=== PATIENT | male | born 1970 | race Caucasian/White ===

== ENCOUNTER 2019-06-08 02:52 | Observation (INO) | payer BC ==
[2019-06-08] MEDS ORDERED: ASPIRIN 81 MG TABLET, CHEWABLE PO ONE (03:48)
[2019-06-08] MEDS ORDERED: PANTOPRAZOLE SODIUM 40 MG VIAL IV ONE (03:49)
--- NOTE | 2019-06-08 03:50 | ER Document Report ---
ED Cardiac <JOHN AC - Last Filed: 06/08/19 18:00> - General TRAVEL OUTSIDE OF THE [place] IN LAST 30 DAYS: No <SENTHIL HURD - Last Filed: 06/08/19 19:15> - General Chief Complaint: Chest Pain Stated Complaint: CHEST PAIN Time Seen by Provider: 06/08/19 03:39 Notes: Patient is a 48-year-old male who presents the emergency department with a chief complaint of chest pain. He states his pain started at midnight tonight. He states that he has been vomiting. Patient states that it starts in his epigastric area and radiates to his back. States that sharp pain that is constantly there. Patient has a history of epilepsy and a murmur. He denies any hypertension or diabetes that he knows of. 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 (SENTHIL HURD) - Related Data Allergies/Adverse Reactions: No Known Drug Allergies Allergy (Verified 06/08/19 02:54) Past Medical History - Social History Smoking Status: Never Smoker Family History: Reviewed & Not Pertinent <SENTHIL HURD - Last Filed: 06/08/19 19:15> Review of Systems <SENTHIL HURD - Last Filed: 06/08/19 19:15> - Review of Systems Notes: REVIEW OF SYSTEMS: CONSTITUTIONAL : Denies recent illness. Denies recent unintentional weight loss. Denies fever, chills, or sweats. EENT: Denies eye, ear, throat, or mouth pain, discharge, or symptoms. Denies nasal or sinus congestion. CARDIOVASCULAR: See HPI RESPIRATORY: Denies shortness of breath, cough, congestion, difficulty breathing , or wheezing. GASTROINTESTINAL: See HPI GENITOURINARY: Denies difficulty urinating, burning, blood in urine, urgency or frequency. MUSCULOSKELETAL: Denies neck and back pain. Denies joint pain or swelling. SKIN: Denies rash, itchiness, or lesions HEMATOLOGIC : Denies easy bruising or bleeding. LYMPHATIC: Denies swollen, painful, enlarged glands. NEUROLOGICAL: Denies no numbness or tingling denies weakness. Denies headache. Denies altered mental status. Denies alteration in speech. PSYCHIATRIC: Denies stress, anxiety, alteration in sleep patterns, or depression. All other systems reviewed and negative. (SENTHIL HURD) Physical Exam <SENTHIL HURD - Last Filed: 06/08/19 19:15> - Vital signs Vitals: Temp Pulse Resp BP Pulse Ox 97.7 F 50 L 20 150/75 H 98 06/08/19 03:07 06/08/19 03:07 06/08/19 03:07 06/08/19 03:07 06/08/19 03:07 - Notes Notes: PHYSICAL EXAMINATION: GENERAL: Appears well, healthy, well-nourished, no acute distress. HEAD: Normocephalic, atraumatic. EYES: PERRL, conjunctiva normal, all extraocular movements intact, sclera nonicteric ENT: Moist mucous membranes. NECK: Supple, no noticeable swelling, redness, rash. Normal range of motion. LUNGS: Equal breath sounds bilaterally and clear to auscultation. No wheezes rales or rhonchi. CARDIOVASCULAR: S1-S2, bradycardic, regular rhythm. Radial pulses 2+, normal. ABDOMEN: Normoactive bowel sounds. Soft, nontender, no guarding, no rebound tenderness, and no masses palpated. EXTREMITIES: Normal strength and range of motion, no pitting or edema. No cyanosis. NEUROLOGICAL: Moves all extremities upon command. Strength 5/5 in all extremities. PSYCH: Normal mood, normal affect. SKIN: Warm, dry. No rash, lesions, ulcerations noted. Normal skin turgor. (SENTHIL HURD) Course - Laboratory Result Diagrams: 06/08/19 03:35 06/08/19 03:35 - Diagnostic Test Radiology reviewed: Image reviewed, Reports reviewed - EKG Interpretation by Me EKG shows normal: Sinus rhythm Rate: Bradycardia - 36bpm. no stemi., reviewed by dr davidson. no old avail for comparison. [place]/QRS: RBBB When compared to previous EKG there are: Previous EKG unavailable <JOHN AC - Last Filed: 06/08/19 18:00> - Laboratory Result Diagrams: 06/08/19 03:35 06/08/19 03:35 <SENTHIL HURD - Last Filed: 06/08/19 19:15> - Re-evaluation Re-evalutation: 06/08/19 10:21 Patient signed out to me by overnight [employer]IG[employer]PRENTICE Place, pending CT results at the end of her shift. chest abdomen pelvis CT showed that the gallbladder was distended and contains a large calcified stone in the fundus and a gallstone in the gallbladder neck concerning for acute cholecystitis per radiology and reviewed by myself. pt informed of his findings. he was pain and nausea controlled. Patient does have some epigastric abdominal tenderness to palpation along with tenderness to palpation of the right upper quadrant. He has also had some vomiting and diarrhea. Symptoms started after he had [employer] last night. He has had low-grade subjective fevers. No abdominal surgeries. Last p.o. intake was 9 PM. No blood thinners. He just takes Dilantin for seizures. He was note d to have bradycardia here incidentally and denies any prior history or other symptoms of this. ekg shows sinus kajal with a RBBB, 36 bpm, no stemi, no old avail for comparison. reviewed by dr davidson, He takes no other medications. Denies any prior cardiac disease. He does have a mild leukocytosis however his labs were otherwise unremarkable. I did speak with the on-call surgeon, Dr. Ingram, at approx 10:15am who advised to make the patient n.p.o. after midnight, start Zosyn and pain control and have the hospitalist admit. I did speak with the hospitalist, Dr. Gutierrez, directly after this, secondary to the patient's bradycardia who stated he would come down to the ER to evaluate the patient for admission. Patient remained stable during his ER stay. He is well- appearing and nontoxic. Serial abdominal exams remain benign and non- peritoneal. This was my only involvement in patient care. Please refer to their note for further details of the visit. Care transferred to hospitalist/s little in stable condition. 06/08/19 10:28 (JOHN AC) 06/08/19 06:30 Patient's CBC and chemistries are both unremarkable. His first troponin is negative at this time. EKG was normal. Patient states that he still has pain. He received nitroglycerin to see if it helps with his pain. 06/08/19 07:35 Patient still continues to have pain. I discussed this case with Dr. Davidson, she is recommending a CT of the chest abdomen and pelvis to rule out an aortic dissection. 06/08/19 08:16 Report was given to CARLOS Valle. She will follow-up with the CTA of the chest, abdomen, and pelvis. (SENTHIL HURD) - Vital Signs Vital signs: Temp Pulse Resp BP Pulse Ox 98.7 F 45 L 16 149/76 H 96 06/08/19 17:58 06/08/19 17:58 06/08/19 17:58 06/08/19 17:58 06/08/19 17:58 06/08/19 10:21 Temp Pulse Resp BP Pulse Ox 06/08/19 08:16 14 136/82 H 100 06/08/19 08:01 21 H 141/67 H 95 06/08/19 07:46 17 148/67 H 96 06/08/19 07:31 21 H 143/72 H 06/08/19 07:17 18 143/87 H 98 06/08/19 07:11 18 132/69 H 97 06/08/19 07:06 21 H 128/72 H 97 06/08/19 07:01 21 H 131/73 H 95 06/08/19 07:00 19 95 06/08/19 06:56 10 L 140/55 H 96 06/08/19 06:55 10 L 97 06/08/19 06:51 13 142/73 H 97 06/08/19 06:50 11 L 97 06/08/19 06:46 13 157/82 H 97 06/08/19 06:45 12 100 06/08/19 06:01 18 137/81 H 96 06/08/19 06:00 19 96 06/08/19 05:01 16 123/81 97 06/08/19 05:00 14 98 06/08/19 04:01 14 139/83 H 100 06/08/19 04:00 11 L 99 06/08/19 03:29 20 163/75 H 100 06/08/19 03:28 13 100 06/08/19 03:27 14 100 06/08/19 03:07 97.7 F 50 L 20 150/75 H 98 (JOHN AC) - Laboratory Laboratory results interpreted by ar: 06/08/19 06/08/19 03:35 03:35 WBC 11.4 H Seg Neutrophils % 85.5 H Lymphocytes % 10.1 L Absolute Neutrophils 9.8 H BUN 23 H Glucose 127 H 06/08/19 10:26 Labs- Entire Visit 06/08/19 06/08/19 06/08/19 03:35 03:35 03:35 WBC 11.4 H RBC 4.82 Hgb 14.2 Hct 42.4 MCV 88 MCH 29.5 MCHC 33.5 RDW 13.3 Plt Count 158 Seg Neutrophils % 85.5 H Lymphocytes % 10.1 L Monocytes % 3.7 Eosinophils % 0.3 Basophils % 0.4 Absolute Neutrophils 9.8 H Absolute Lymphocytes 1.2 Absolute Monocytes 0.4 Absolute Eosinophils 0.0 Absolute Basophils 0.0 Sodium 138.3 Potassium 4.0 Chloride 104 Carbon Dioxide 26 Anion Gap 8 BUN 23 H Creatinine 0.90 Est GFR ( Amer) > 60 Est GFR (Non-Af Amer) > 60 Glucose 127 H Calcium 9.1 Total Bilirubin 0.4 Direct Bilirubin 0.3 Neonat Total Bilirubin Not Reportable Neonat Direct Bilirubin Not Reportable Neonat Indirect Bili Not Reportable AST 28 ALT 32 Alkaline Phosphatase 72 Creatine Kinase 151 CK-MB (CK-2) 2.47 Troponin I < 0.012 Total Protein 7.0 Albumin 4.5 Lipase 06/08/19 06/08/19 03:35 06:50 WBC RBC Hgb Hct MCV MCH MCHC RDW Plt Count Seg Neutrophils % Lymphocytes % Monocytes % Eosinophils % Basophils % Absolute Neutrophils Absolute Lymphocytes Absolute Monocytes Absolute Eosinophils Absolute Basophils Sodium Potassium Chloride Carbon Dioxide Anion Gap BUN Creatinine Est GFR ( Amer) Est GFR (Non-Af Amer) Glucose Calcium Total Bilirubin Direct Bilirubin Neonat Total Bilirubin Neonat Direct Bilirubin Neonat Indirect Bili AST ALT Alkaline Phosphatase Creatine Kinase CK-MB (CK-2) Troponin I < 0.012 Total Protein Albumin Lipase 77.1 (JOHN AC) - Diagnostic Test Radiology results interpreted by me: 06/08/19 10:21 Chest X-Ray 06/08/19 03:47 IMPRESSION: No acute cardiopulmonary abnormality copyright 2011 [employer]- All Rights Reserved Abdomen/Pelvis CTA 06/08/19 07:22 IMPRESSION: 1. Unremarkable angiogram of the aorta. No evidence of aneurysm, dissection, or other acute pathology. 2. The gallbladder is distended and contains a large calcified stone in the fundus and a gallstone in the gallbladder neck (series 603, image 38). Findings are concerning for acute cholecystitis. Chest/Abdomen CTA 06/08/19 07:22 IMPRESSION: 1. Unremarkable angiogram of the aorta. No evidence of aneurysm, dissection, or other acute pathology. 2. The gallbladder is distended and contains a large calcified stone in the fundus and a gallstone in the gallbladder neck (series 603, image 38). Findings are concerning for acute cholecystitis. (JOHN AC) - EKG Interpretation by Me Additional EKG results interpreted by me: 06/08/19 0300 Sinus bradycardia with a right bundle branch block. Heart rate of 42. VA 176; QRS 144; QT 488; QTc 408. 06/08/2019 0615 Sinus bradycardia with a right bundle branch block. Heart rate 36. VA 160; QRS 148; QT 500; QTc 387. (SENTHIL HURD) Discharge - Discharge Admitting Provider: Surgicalist - dr ingram agreed to take the pt to the OR tomorrow and requested NPO after midnight and to start zosyn and pain control, requested hospitalist admit, pt does have bradycardia that the pt wasn't aware of, spoke with hospitalist dr rocha who stated he would come down to the ER to evaluate the pt for admission Unit Admitted: Surgical Floor <JOHN AC - Last Filed: 06/08/19 18:00> <SENTHIL HURD - Last Filed: 06/08/19 19:15> - Discharge Clinical Impression: Bradycardia, Right bundle branch block, Vomiting and diarrhea, Leukocytosis Cholelithiasis with acute cholecystitis Qualifiers: Biliary obstruction: without biliary obstruction Qualified Code(s): K80.00 - Calculus of gallbladder with acute cholecystitis without obstruction Abdominal pain Qualifiers: Abdominal location: upper abdomen, unspecified Qualified Code(s): R10.10 - Upper abdominal pain, unspecified Condition: Fair Disposition: ADMITTED INPATIENT
[2019-06-08 03:54] LABS: ABSOLUTE LYMPHOCYTES (AUTO) 1.2 10^3/uL (0.5-4.7); ABSOLUTE MONOCYTES (AUTO) 0.4 10^3/uL (0.1-1.4); ABSOLUTE NEUT (AUTO) 9.8 10^3/uL (1.7-8.2); BASOPHILS % (AUTO) 0.4 % (0-2); EOSINOPHILS % (AUTO) 0.3 % (0-6); HEMATOCRIT 42.4 % (37.9-51.0); HEMOGLOBIN 14.2 g/dL (13.5-17.0); LYMPHOCYTES % (AUTO) 10.1 % (13-45); MEAN CORPUSCULAR HEMOGLOBIN 29.5 pg (27.0-33.4); MEAN CORPUSCULAR HGB CONC 33.5 g/dL (32.0-36.0); MEAN CORPUSCULAR VOLUME 88 fl (80-97); MONOCYTES % (AUTO) 3.7 % (3-13); PLATELET COUNT 158 10^3/uL (150-450); RED BLOOD COUNT 4.82 10^6/uL (4.35-5.55); RED CELL DISTRIBUTION WIDTH 13.3 % (11.5-14.0); SEGMENTED NEUTROPHILS % (AUTO) 85.5 % (42-78); TOTAL CELLS COUNTED % (AUTO) 100 %; WHITE BLOOD COUNT 11.4 10^3/uL (4.0-10.5)
[2019-06-08] MEDS ORDERED: MORPHINE SULFATE 10 MG/ML INJ IV ONE (04:06)
[2019-06-08] MEDS ORDERED: ONDANSETRON HCL INJ/PF 4 MG/2 ML SDV IV ONE (04:06)
[2019-06-08 04:11] LABS: ALANINE AMINOTRANSFERASE 32 U/L (21-72); ALBUMIN 4.5 g/dL (3.5-5.0); ALKALINE PHOSPHATASE 72 U/L (38-126); ANION GAP 8 (5-19); ASPARTATE AMINO TRANSFERASE 28 U/L (17-59); BILIRUBIN,DIRECT 0.3 mg/dL (0.0-0.4); BILIRUBIN,TOTAL 0.4 mg/dL (0.2-1.3); BLOOD UREA NITROGEN 23 mg/dL (7-20); CALCIUM 9.1 mg/dL (8.4-10.2); CARBON DIOXIDE 26 mmol/L (22-30); CHLORIDE 104 mmol/L (98-107); CREATINE KINASE 151 U/L (55-170); GLUCOSE 127 mg/dL (75-110)
[2019-06-08 04:22] LABS: CREATINE KINASE MB 2.47 ng/mL (<4.55)
[2019-06-08 04:23] LABS: TROPONIN I < 0.012 ng/mL
--- NOTE | 2019-06-08 05:04 | RADIOLOGY REPORT (SQ) ---
EXAM DESCRIPTION: XR CHEST 1 VIEW COMPLETED DATE/TME: 06/08/2019 03:47 CLINICAL HISTORY: 48 years, Male, chest pain COMPARISON: None. NUMBER OF VIEWS: One TECHNIQUE: AP view of the chest LIMITATIONS: None. FINDINGS: The lungs are clear. The heart is normal in size. There is no pneumothorax or pleural effusion. The bones are unremarkable. IMPRESSION: No acute cardiopulmonary abnormality copyright 2010 [employer]- All Rights Reserved
[2019-06-08] MEDS ORDERED: MAG HYDROX/AL HYDROX/SIMETH SUSP 30 ML UDCUP PO ONE (05:15)
[2019-06-08] MEDS ORDERED: LIDOCAINE 2% VISCOUS SOLN 20 ML UDCUP PO ONE (05:15)
[2019-06-08] MEDS ORDERED: METOCLOPRAMIDE HCL ORAL SOLN 10 MG/10 ML UDCUP PO ONE (05:15)
[2019-06-08] MEDS ORDERED: NITROGLYCERIN 0.4 MG/TAB 25 TAB/BOTTLE SL PRN (06:36)
[2019-06-08] MEDS ORDERED: LIDOCAINE 2% INJ-PF (20 MG/ML) 2 ML AMPUL ONE (08:35)
[2019-06-08] MEDS ORDERED: KETOROLAC TROMETHAMINE 60 MG/2 ML SDV ONE (08:35)
[2019-06-08] MEDS ORDERED: DEXAMETHASONE SOD PHOSPHATE INJ 4 MG/1 ML VIAL ONE (08:35)
[2019-06-08] MEDS ORDERED: ONDANSETRON HCL INJ/PF 4 MG/2 ML SDV ONE (08:35)
[2019-06-08] MEDS ORDERED: ROCURONIUM BROMIDE INJ 50 MG/5 ML VIAL IV ONE (08:35)
[2019-06-08] MEDS ORDERED: NEOSTIGMINE METHYLSULFATE 10 MG/10 ML VIAL ONE (08:35)
[2019-06-08] MEDS ORDERED: GLYCOPYRROLATE 1 MG/5 ML VIAL ONE (08:35)
[2019-06-08] MEDS ORDERED: SUCCINYLCHOLINE CHLORIDE INJ 200 MG/10 ML VIAL ONE (08:35)
[2019-06-08] MEDS ORDERED: METOCLOPRAMIDE HCL INJ/PF 10 MG/2 ML SDV ONE (08:35)
--- NOTE | 2019-06-08 08:35 | EKG REPORT ---
SEVERITY:- ABNORMAL ECG - SINUS BRADYCARDIA MARKED, 36/MIN. RIGHT BUNDLE BRANCH BLOCK AND LAFB. NONSPECIFIC INFERIOR ST-T CHANGES : Confirmed by: Raymond Conn MD 08-Jun-2019 08:34:41
--- NOTE | 2019-06-08 08:36 | EKG REPORT ---
SEVERITY:- ABNORMAL ECG - SINUS BRADYCARDIA RIGHT BUNDLE BRANCH BLOCK, LAFB. NONSPECIFIC ST-T CHANGES INFERIOR LEADS. : Confirmed by: Raymond Conn MD 08-Jun-2019 08:35:29
--- NOTE | 2019-06-08 08:57 | RADIOLOGY REPORT (SQ) ---
EXAM DESCRIPTION: CTA ABDOMEN/PELVIS W WO; CTA CHEST COMPLETED DATE/TIME: 06/08/2019 8:41 am REASON FOR STUDY: chest/abd pain eval aortic disection? COMPARISON: Same day chest radiograph TECHNIQUE: CT scan of the chest, abdomen, and pelvis performed with and without intravenous contrast using helical scanning technique with dynamic intravenous contrast injection. Images reviewed with l melody, soft tissue, and bone windows. Reconstructed coronal and sagittal MPR images reviewed. All image s stored on PACS. Advanced 3D imaging as volume rendering, MIPS, SSD performed? yes All CT scanners at this facility use dose modulation, iterative reconstruction, and/or weight based d osing when appropriate to reduce radiation dose to as low as reasonably achievable (ALARA). [facility]: Dose Right [facility]: CareDose [facility]: Dose Right [facility]: Teradose 4D [facility]: [employer] CONTRAST TYPE AND DOSE: contrast/concentration: Isovue 350.00 mg/ml; Total Contrast Delivered: 67.0 ml; Total Saline Delivered: 60.0 ml RENAL FUNCTION: None required. The patient is less than 50 years old. RADIATION DOSE: 2374 mGy cm LIMITATIONS: None. FINDINGS: AORTA AND VESSELS: No aneurysm. No dissection. Renal arteries, SMA, celiac without stenosi s. LUNGS: No significant findings. No nodules or infiltrates. HEART AND MEDIASTINUM: The heart is normal in size. No lymphadenopathy. LIVER: Normal size. No masses or dilated ducts. SPLEEN: Normal size. No focal lesions. PANCREAS: No masses. No significant calcifications. No adjacent inflammation or peripancreatic fluid collections. Pancreatic duct not dilated. GALLBLADDER: The gallbladder is distended and contains a large calcified stone in the fundus and a ga llstone in the gallbladder neck (series 603, image 38) ADRENAL GLANDS: No significant masses or asymmetry. RIGHT KIDNEY AND URETER: No mass, calculi or urinary tract obstruction. LEFT KIDNEY AND URETER: No mass, calculi or urinary tract obstruction. RETROPERITONEUM: No retroperitoneal adenopathy, hemorrhage or masses. BOWEL AND PERITONEAL CAVITY: No masses or inflammatory changes. No free fluid or peritoneal masses. APPENDIX: Normal. ABDOMINAL WALL: No masses. No hernias. BONY STRUCTURES: No significant or acute findings. 3-D IMAGING: Confirms the above findings. OTHER: No other significant finding. IMPRESSION: 1. Unremarkable angiogram of the aorta. No evidence of aneurysm, dissection, or other acute pathology. 2. The gallbladder is distended and contains a large calcified stone in the fundus and a gallstone in the gallbladder neck (series 603, image 38). Findings are concerning for acute cholecystitis. TECHNICAL DOCUMENTATION: JOB ID: [id number] Quality ID # [id number]: Final reports with documentation of one or more dose reduction techniques (e.g., Au tomated exposure control, adjustment of the mA and/or kV according to patient size, use of iterative reconstruction technique) 2010 [email or web address]- All Rights Reserved Reading location - IP/workstation name: [email or web address]
--- NOTE | 2019-06-08 08:57 | RADIOLOGY REPORT (SQ) ---
EXAM DESCRIPTION: CTA ABDOMEN/PELVIS W WO; CTA CHEST COMPLETED DATE/TIME: 06/08/2019 8:41 am REASON FOR STUDY: chest/abd pain eval aortic disection? COMPARISON: Same day chest radiograph TECHNIQUE: CT scan of the chest, abdomen, and pelvis performed with and without intravenous contrast using helical scanning technique with dynamic intravenous contrast injection. Images reviewed with l melody, soft tissue, and bone windows. Reconstructed coronal and sagittal MPR images reviewed. All image s stored on PACS. Advanced 3D imaging as volume rendering, MIPS, SSD performed? yes All CT scanners at this facility use dose modulation, iterative reconstruction, and/or weight based d osing when appropriate to reduce radiation dose to as low as reasonably achievable (ALARA). [facility]: Dose Right [facility]: CareDose [facility]: Dose Right [facility]: Teradose 4D [facility]: [id number] CONTRAST TYPE AND DOSE: contrast/concentration: Isovue 350.00 mg/ml; Total Contrast Delivered: 67.0 ml; Total Saline Delivered: 60.0 ml RENAL FUNCTION: None required. The patient is less than 50 years old. RADIATION DOSE: 2374 mGy cm LIMITATIONS: None. FINDINGS: AORTA AND VESSELS: No aneurysm. No dissection. Renal arteries, SMA, celiac without stenosi s. LUNGS: No significant findings. No nodules or infiltrates. HEART AND MEDIASTINUM: The heart is normal in size. No lymphadenopathy. LIVER: Normal size. No masses or dilated ducts. SPLEEN: Normal size. No focal lesions. PANCREAS: No masses. No significant calcifications. No adjacent inflammation or peripancreatic fluid collections. Pancreatic duct not dilated. GALLBLADDER: The gallbladder is distended and contains a large calcified stone in the fundus and a ga llstone in the gallbladder neck (series 603, image 38) ADRENAL GLANDS: No significant masses or asymmetry. RIGHT KIDNEY AND URETER: No mass, calculi or urinary tract obstruction. LEFT KIDNEY AND URETER: No mass, calculi or urinary tract obstruction. RETROPERITONEUM: No retroperitoneal adenopathy, hemorrhage or masses. BOWEL AND PERITONEAL CAVITY: No masses or inflammatory changes. No free fluid or peritoneal masses. APPENDIX: Normal. ABDOMINAL WALL: No masses. No hernias. BONY STRUCTURES: No significant or acute findings. 3-D IMAGING: Confirms the above findings. OTHER: No other significant finding. IMPRESSION: 1. Unremarkable angiogram of the aorta. No evidence of aneurysm, dissection, or other acute pathology. 2. The gallbladder is distended and contains a large calcified stone in the fundus and a gallstone in the gallbladder neck (series 603, image 38). Findings are concerning for acute cholecystitis. TECHNICAL DOCUMENTATION: JOB ID: [id number] Quality ID # [id number]: Final reports with documentation of one or more dose reduction techniques (e.g., Au tomated exposure control, adjustment of the mA and/or kV according to patient size, use of iterative reconstruction technique) 2010 [employer]- All Rights Reserved Reading location - IP/workstation name: [email or web address]
[2019-06-08] MEDS ORDERED: AMPICILLIN SOD/SULBACTAM 3 GM VIAL IV ONE (10:07)
[2019-06-08] MEDS ORDERED: PIPERACILLIN/TAZOBACTAM 3.375 GM VIAL IV ONE ×2 (10:10→10:15)
[2019-06-08] MEDS ORDERED: KETOROLAC TROMETHAMINE INJ/PF 30 MG/1 ML SDV IV ONE (11:11)
[2019-06-08] MEDS ORDERED: DEXTROSE 40% GEL 15 GM TUBE PO PRN ×2 (13:45)
[2019-06-08] MEDS ORDERED: DEXTROSE 50%-WATER 25 GM/50 ML DISP.SYRIN IV PRN ×2 (13:45)
[2019-06-08] MEDS ORDERED: GLUCAGON,HUMAN RECOMB 1 MG INJ IM PRN (13:45)
[2019-06-08] MEDS ORDERED: NORMAL SALINE 1000 ML 1,000 ML IV PRN (13:45)
--- NOTE | 2019-06-08 15:41 | PDOC CONSULTATION ---
Consultation Consult Date: 06/08/19 Attending physician:: GEE ESTES Provider Consulted: CRISTHIAN HASTINGS Consult reason:: medical co-mgt History of Present Illness Admission Date/PCP: 06/08/19 10:37 Patient complains of: abdominal pain History of Present Illness: JERARDO ABRAMS is a 48 year old male with no significant past medical history aside from epilepsy well-controlled on Dilantin who is presenting with abdominal pain. Patient says that he has been apparently well until last night when he had achy epigastric pain. In the ER, he was noted to have gallstones and cholecystitis. Surgery is planned to proceed with laparoscopic cholecystectomy tomorrow. He was found to be bradycardic on presentation hence this medical consult. Upon encounter, patient's heart rate is running at 45-46. Blood pressures running in the 130/80 systolic. He denies any chest pain or shortness of breath. He denies prior history of CAD or CHF. Denies significant cardiac history in the family. He denies alcohol use or cigarette smoking. Social History Smoking Status: Never Smoker Frequency of Alcohol Use: None Hx Recreational Drug Use: No Drugs: None Hx Prescription Drug Abuse: No Family History Parental Family History Reviewed: Yes - No premature CAD Children Family History Reviewed: No Sibling(s) Family History Reviewed.: No Medication/Allergy Home Medications: Phenytoin Sodium Extended [Dilantin 100 mg Capsule.er] 200 mg PO Q12 06/08/19 Allergies/Adverse Reactions: No Known Drug Allergies Allergy (Verified 06/08/19 02:54) Review of Systems All systems: reviewed and no additional remarkable complaints except as stated - As mentioned in HPI Physical Exam Vital Signs: Temp Pulse Resp BP Pulse Ox 97.7 F 50 L 18 144/71 H 97 06/08/19 03:07 06/08/19 03:07 06/08/19 10:31 06/08/19 10:31 06/08/19 10:31 Intake & Output 06/07/19 06/08/19 06/09/19 06:59 06:59 06:59 Weight 209 lb 14.081 oz General appearance: PRESENT: no acute distress, well-developed, well-nourished Head exam: PRESENT: atraumatic, normocephalic Eye exam: PRESENT: conjunctiva pink, EOMI, PERRLA. ABSENT: scleral icterus Ear exam: PRESENT: normal external ear exam Mouth exam: PRESENT: moist, tongue midline Neck exam: ABSENT: carotid bruit, JVD, lymphadenopathy, thyromegaly Respiratory exam: PRESENT: clear to auscultation valeriy. ABSENT: rales, rhonchi, wheezes Cardiovascular exam: PRESENT: RRR. ABSENT: diastolic murmur, rubs, systolic murmur Pulses: PRESENT: normal dorsalis pedis pul GI/Abdominal exam: PRESENT: normal bowel sounds, soft. ABSENT: distended, g uarding, mass, organolmegaly, rebound, tenderness Rectal exam: PRESENT: deferred Extremities exam: PRESENT: full ROM. ABSENT: calf tenderness, clubbing, pedal edema Neurological exam: PRESENT: alert, awake, oriented to person, oriented to place, oriented to time, oriented to situation, CN II-XII grossly intact. ABSENT: mo tor sensory deficit Results Laboratory Results: 06/08/19 03:35 06/08/19 03:35 06/08/19 06/08/19 06/08/19 03:35 03:35 03:35 WBC 11.4 H RBC 4.82 Hgb 14.2 Hct 42.4 MCV 88 MCH 29.5 MCHC 33.5 RDW 13.3 Plt Count 158 Seg Neutrophils % 85.5 H Lymphocytes % 10.1 L Monocytes % 3.7 Eosinophils % 0.3 Basophils % 0.4 Absolute Neutrophils 9.8 H Absolute Lymphocytes 1.2 Absolute Monocytes 0.4 Absolute Eosinophils 0.0 Absolute Basophils 0.0 Sodium 138.3 Potassium 4.0 Chloride 104 Carbon Dioxide 26 Anion Gap 8 BUN 23 H Creatinine 0.90 Est GFR ( Amer) > 60 Est GFR (Non-Af Amer) > 60 Glucose 127 H Calcium 9.1 Total Bilirubin 0.4 AST 28 ALT 32 Alkaline Phosphatase 72 Total Protein 7.0 Albumin 4.5 Lipase 77.1 TSH 06/08/19 03:35 WBC RBC Hgb Hct MCV MCH MCHC RDW Plt Count Seg Neutrophils % Lymphocytes % Monocytes % Eosinophils % Basophils % Absolute Neutrophils Absolute Lymphocytes Absolute Monocytes Absolute Eosinophils Absolute Basophils Sodium Potassium Chloride Carbon Dioxide Anion Gap BUN Creatinine Est GFR ( Amer) Est GFR (Non-Af Amer) Glucose Calcium Total Bilirubin AST ALT Alkaline Phosphatase Total Protein Albumin Lipase TSH 1.07 06/08/19 06/08/19 06/08/19 03:35 03:35 06:50 Creatine Kinase 151 CK-MB (CK-2) 2.47 Troponin I < 0.012 < 0.012 Impressions: Chest X-Ray 06/08/19 03:47 IMPRESSION: No acute cardiopulmonary abnormality copyright 2011 [employer]- All Rights Reserved Abdomen/Pelvis CTA 06/08/19 07:22 IMPRESSION: 1. Unremarkable angiogram of the aorta. No evidence of aneurysm, dissection, or other acute pathology. 2. The gallbladder is distended and contains a large calcified stone in the fundus and a gallstone in the gallbladder neck (series 603, image 38). Findings are concerning for acute cholecystitis. Chest/Abdomen CTA 06/08/19 07:22 IMPRESSION: 1. Unremarkable angiogram of the aorta. No evidence of aneurysm, dissection, or other acute pathology. 2. The gallbladder is distended and contains a large calcified stone in the fundus and a gallstone in the gallbladder neck (series 603, image 38). Findings are concerning for acute cholecystitis. Assessment and Plan - Diagnosis (1) Cholelithiasis with acute cholecystitis Qualifiers: Biliary obstruction: without biliary obstruction Qualified Code(s): K80.00 - Calculus of gallbladder with acute cholecystitis without obstruction Is this a current diagnosis for this admission?: Yes Plan: He is scheduled for laparoscopic cholecystectomy tomorrow by surgery. Recommend to continue Zosyn for now. (2) Bradycardia Is this a current diagnosis for this admission?: Yes Plan: Patient says that his heart rate is usually in the high 50s to 60s at home. Heart rate on encounter is at 46-48. EKG shows sinus bradycardia. Troponins have been negative x2. Blood pressure is stable in the 130/80s. He denies any shortness of breath or chest pain. We will check a TSH. Will order 2D echo as well. - Time Time Spent with patient: 15-24 minutes
--- NOTE | 2019-06-08 15:42 | ADVANCED CARE ---
- Diagnosis (1) Cholelithiasis with acute cholecystitis Diagnosis Current: Yes (2) Bradycardia Diagnosis Current: Yes Resuscitation Status: Full Code Discussion: She says he is a full code and prefers chest compressions, defibrillation or mechanical ventilation. He says that his son, Ced is his surrogate medical decision maker.
[2019-06-08] MEDS: INSULIN LISPRO 100 UNIT/ML 3 ML VIAL SUBCUT SCH ×2 (17:19→21:13)
[2019-06-08] MEDS: KETOROLAC TROMETHAMINE INJ/PF 30 MG/1 ML SDV IV PRN ×2 (17:32→23:24)
[2019-06-08] MEDS: PIPERACILLIN SODIUM/TAZOBACTAM 3.375 GM in NORMAL SALINE 100 ML IV SCH ×2 (18:48→23:23)
--- NOTE | 2019-06-08 19:26 | PDOC H&P ---
History of Present Illness Admission Date/PCP: 06/08/19 10:37 Patient complains of: abdominal pains History of Present Illness: JERARDO ABRAMS is a 48 year old male who c/o RUQ pains radiating to the back associated with nausea/vomiting/diarrhea and chilly sensation this morning after eating greazy food for dinner at [email or web address]. CT scan showed acute cholecystitis with cholelithiasis. History of epilepsy on Dilantin diagnosed at 9 years old. Noted to have HR of 45/min in the ER and had an echocardiogram done. Hospitalist told me it is normal but awaiting official report from the material manager. Patient looks very healthy,non smoker and works in [employer].His HR at home is usually 50's to 60's. Past Medical History Neurological History Note: Epilepsy on Dilantin Social History Smoking Status: Never Smoker Frequency of Alcohol Use: None Hx Recreational Drug Use: No Drugs: None Hx Prescription Drug Abuse: No - Advance Directive Resuscitation Status: Full Code Family History Family History: DM Parental Family History Reviewed: Yes Children Family History Reviewed: No Sibling(s) Family History Reviewed.: No Medication/Allergy Home Medications: Phenytoin Sodium Extended [Dilantin 100 mg Capsule.er] 200 mg PO Q12 06/08/19 Allergies/Adverse Reactions: No Known Drug Allergies Allergy (Verified 06/08/19 02:54) Review of Systems Constitutional: PRESENT: as per HPI Physical Exam Vital Signs: Temp Pulse Resp BP Pulse Ox 98.7 F 45 L 16 149/76 H 96 06/08/19 17:58 06/08/19 17:58 06/08/19 17:58 06/08/19 17:58 06/08/19 17:58 Intake & Output 06/07/19 06/08/19 06/09/19 06:59 06:59 06:59 Intake Total 440 Balance 440 Weight 95.2 kg 94.1 kg General appearance: PRESENT: mild distress Head exam: PRESENT: atraumatic Eye exam: PRESENT: conjunctiva pink Mouth exam: PRESENT: moist Neck exam: PRESENT: full ROM Respiratory exam: PRESENT: clear to auscultation valeriy Cardiovascular exam: PRESENT: bradycardia Pulses: PRESENT: normal radial pulses Vascular exam: PRESENT: normal capillary refill GI/Abdominal exam: PRESENT: soft, tenderness - RUQ Rectal exam: PRESENT: deferred Extremities exam: PRESENT: full ROM Musculoskeletal exam: PRESENT: ambulatory Neurological exam: PRESENT: alert, oriented to person, oriented to place, oriented to time, oriented to situation Psychiatric exam: PRESENT: appropriate affect Skin exam: PRESENT: normal color, warm Results Laboratory Results: 06/08/19 03:35 06/08/19 03:35 06/08/19 06/08/19 06/08/19 03:35 03:35 03:35 WBC 11.4 H RBC 4.82 Hgb 14.2 Hct 42.4 MCV 88 MCH 29.5 MCHC 33.5 RDW 13.3 Plt Count 158 Seg Neutrophils % 85.5 H Lymphocytes % 10.1 L Monocytes % 3.7 Eosinophils % 0.3 Basophils % 0.4 Absolute Neutrophils 9.8 H Absolute Lymphocytes 1.2 Absolute Monocytes 0.4 Absolute Eosinophils 0.0 Absolute Basophils 0.0 Sodium 138.3 Potassium 4.0 Chloride 104 Carbon Dioxide 26 Anion Gap 8 BUN 23 H Creatinine 0.90 Est GFR ( Amer) > 60 Est GFR (Non-Af Amer) > 60 Glucose 127 H Calcium 9.1 Total Bilirubin 0.4 AST 28 ALT 32 Alkaline Phosphatase 72 Total Protein 7.0 Albumin 4.5 Lipase 77.1 TSH 06/08/19 03:35 WBC RBC Hgb Hct MCV MCH MCHC RDW Plt Count Seg Neutrophils % Lymphocytes % Monocytes % Eosinophils % Basophils % Absolute Neutrophils Absolute Lymphocytes Absolute Monocytes Absolute Eosinophils Absolute Basophils Sodium Potassium Chloride Carbon Dioxide Anion Gap BUN Creatinine Est GFR ( Amer) Est GFR (Non-Af Amer) Glucose Calcium Total Bilirubin AST ALT Alkaline Phosphatase Total Protein Albumin Lipase TSH 1.07 06/08/19 06/08/19 06/08/19 03:35 03:35 06:50 Creatine Kinase 151 CK-MB (CK-2) 2.47 Troponin I < 0.012 < 0.012 Impressions: Chest X-Ray 06/08/19 03:47 IMPRESSION: No acute cardiopulmonary abnormality copyright 2011 [employer]- All Rights Reserved Abdomen/Pelvis CTA 06/08/19 07:22 IMPRESSION: 1. Unremarkable angiogram of the aorta. No evidence of aneurysm, dissection, or other acute pathology. 2. The gallbladder is distended and contains a large calcified stone in the fundus and a gallstone in the gallbladder neck (series 603, image 38). Findings are concerning for acute cholecystitis. Chest/Abdomen CTA 06/08/19 07:22 IMPRESSION: 1. Unremarkable angiogram of the aorta. No evidence of aneurysm, dissection, or other acute pathology. 2. The gallbladder is distended and contains a large calcified stone in the fundus and a gallstone in the gallbladder neck (series 603, image 38). Findings are concerning for acute cholecystitis. Assessment & Plan - Diagnosis (1) Abdominal pain Qualifiers: Abdominal location: upper abdomen, unspecified Qualified Code(s): R10.10 - Upper abdominal pain, unspecified Is this a current diagnosis for this admission?: Yes (2) Bradycardia Is this a current diagnosis for this admission?: Yes (3) Cholelithiasis with acute cholecystitis Qualifiers: Biliary obstruction: without biliary obstruction Qualified Code(s): K80.00 - Calculus of gallbladder with acute cholecystitis without obstruction Is this a current diagnosis for this admission?: Yes (4) Leukocytosis Is this a current diagnosis for this admission?: Yes (5) Vomiting and diarrhea Is this a current diagnosis for this admission?: Yes - Time Time Spent: 30 to 50 Minutes - Inpatient Certification Medical Necessity: Need for IV Antibiotics, Need for Surgery - Plan Summary Plan Summary: For betty yen tomorrow
[2019-06-08] MEDS: PHENYTOIN SODIUM EXTENDED 100 MG CAPSULE PO SCH (23:24)
[2019-06-09 05:22] LABS: ABSOLUTE EOSINOPHILS # (AUTO) 0.1 10^3/uL (0.0-0.6); ABSOLUTE LYMPHOCYTES (AUTO) 1.6 10^3/uL (0.5-4.7); ABSOLUTE MONOCYTES (AUTO) 0.7 10^3/uL (0.1-1.4); ABSOLUTE NEUT (AUTO) 6.6 10^3/uL (1.7-8.2); BASOPHILS % (AUTO) 0.4 % (0-2); EOSINOPHILS % (AUTO) 0.8 % (0-6); HEMOGLOBIN 14.6 g/dL (13.5-17.0); LYMPHOCYTES % (AUTO) 17.5 % (13-45); MEAN CORPUSCULAR HEMOGLOBIN 30.2 pg (27.0-33.4); MEAN CORPUSCULAR HGB CONC 34.6 g/dL (32.0-36.0); MEAN CORPUSCULAR VOLUME 87 fl (80-97); MONOCYTES % (AUTO) 7.9 % (3-13); PLATELET COUNT 129 10^3/uL (150-450); RED BLOOD COUNT 4.81 10^6/uL (4.35-5.55); RED CELL DISTRIBUTION WIDTH 13.4 % (11.5-14.0); SEGMENTED NEUTROPHILS % (AUTO) 73.4 % (42-78); TOTAL CELLS COUNTED % (AUTO) 100 %
[2019-06-09 05:45] LABS: ANION GAP 6 (5-19); BLOOD UREA NITROGEN 16 mg/dL (7-20); CALCIUM 8.9 mg/dL (8.4-10.2); CARBON DIOXIDE 29 mmol/L (22-30); CHLORIDE 105 mmol/L (98-107); GLUCOSE 98 mg/dL (75-110); POTASSIUM 4.9 mmol/L (3.6-5.0)
[2019-06-09] MEDS: PIPERACILLIN SODIUM/TAZOBACTAM 3.375 GM in NORMAL SALINE 100 ML IV SCH ×4 (05:53→23:35)
[2019-06-09] MEDS: KETOROLAC TROMETHAMINE INJ/PF 30 MG/1 ML SDV IV PRN ×2 (05:53→12:51)
[2019-06-09] MEDS: INSULIN LISPRO 100 UNIT/ML 3 ML VIAL SUBCUT SCH ×4 (07:48→21:10)
--- NOTE | 2019-06-09 11:38 | XCELERA REPORT ---
[address] [address] Transthoracic Echocardiogram Report Name: JERARDO ABRAMS Age: 48 yrs Gender: Male : 1970 Patient Status: Inpatient Patient Location: [place] [address]^A Study Date: 06/08/2019 01:54 PM Height: 70 in Weight: 209 lb BSA: 2.1 m2 Procedure: A two-dimensional transthoracic echocardiogram with color flow Doppler was performed. Study Quality: Good. Reason For Study: bradycardia,systolic murmur,acute cholecystitis History: bradycardia,systolic murmur,acute cholecystitis. Ordering Physician: CRISTHIAN HASTINGS Performed By: Roselia Barnhart Interpretation Summary The left ventricle is normal in size. There is normal left ventricular wall thickness. LV EF is > than 65% Left ventricular systolic function is normal. Doppler measurements suggest normal left ventricular diastolic function The left ventricular wall motion is normal. There is no thrombus. There is no ventricular septal defect visualized. The right ventricle is normal in size and function. The right atrium is normal. The left atrial size is normal. The interatrial septum is intact with no evidence for an atrial septal defect. There is no Doppler evidence for an interatrial shunt There is no evidence of mitral valve prolapse. There is no vegetation seen on the mitral valve. There is no mitral valve stenosis. There is a mild amount of mitral regurgitation There is no aortic valve stenosis There is no aortic valvular vegetation. There is no LVOT obstruction. There is a trace amount of aortic regurgitation There is no tricuspid stenosis. There is a mild amount of tricuspid regurgitation No significant pulmonary hypertension.RVSP is 28 to 33 mm of Hg , with RA mean of 5 to 10. There is no pulmonic valvular stenosis. There is a trace amount of pulmonic regurgitation The aortic root is normal size. The inferior vena cava appeared normal and decreased > 50% with respiration (RAP 5-10 mmHg) There is no pericardial effusion. MMode/2D Measurements & Calculations RVDd: 3.5 cm LVIDd: 5.6 cm FS: 42.1 % Ao root diam: 2.8 cm IVSd: 0.96 cm LVIDs: 3.2 cm EDV(Teich): LVPWd: 0.95 cm 154.4 ml Ao root area: ESV(Teich): 6.1 cm2 42.4 ml LA dimension: EF(Teich): 72.5 % 3.6 cm LVLd ap4: 8.6 cm SV(MOD-sp4): EDV(MOD-sp4): 81.0 ml 113.0 ml LVLs ap4: 6.3 cm ESV(MOD-sp4): 32.0 ml EF(MOD-sp4): 71.7 % Doppler Measurements & Calculations MV E max francisco: MV P1/2t max francisco: Ao V2 max: LV V1 max P.3 cm/sec 96.3 cm/sec 175.8 cm/sec 10.3 mmHg MV A max francisco: MV P1/2t: 67.0 msec Ao max PG: LV V1 max: 57.3 cm/sec MVA(P1/2t): 3.3 cm2 12.4 mmHg 160.1 cm/sec MV E/A: 1.7 MV dec slope: 420.5 cm/sec2 MV dec time: 0.21 sec PA V2 max: PI end-d francisco: TR max francisco: MV P1/2t-pr_phl: 86.4 cm/sec 92.3 cm/sec 240.0 cm/sec 67.0 msec PA max PG: TR max P.0 mmHg 23.0 mmHg Left Ventricle The left ventricle is normal in size. There is normal left ventricular wall thickness. LV EF is > than 65%. Left ventricular systolic function is normal. Doppler measurements suggest normal left ventricular diastolic function. The left ventricular wall motion is normal. There is no thrombus. There is no ventricular septal defect visualized. Right Ventricle The right ventricle is normal in size and function. Atria The right atrium is normal. The left atrial size is normal. The interatrial septum is intact with no evidence for an atrial septal defect. There is no Doppler evidence for an interatrial shunt. Mitral Valve There is no evidence of mitral valve prolapse. There is no vegetation seen on the mitral valve. There is no mitral valve stenosis. There is a mild amount of mitral regurgitation. Aortic Valve There is no aortic valvular vegetation. There is no aortic valve stenosis. There is no LVOT obstruction. There is a trace amount of aortic regurgitation. Tricuspid Valve There is no tricuspid stenosis. There is a mild amount of tricuspid regurgitation. No significant pulmonary hypertension.RVSP is 28 to 33 mm of Hg , with RA mean of 5 to 10. Pulmonic Valve There is no pulmonic valvular stenosis. There is a trace amount of pulmonic regurgitation. Great Vessels The aortic root is normal size. The inferior vena cava appeared normal and decreased > 50% with respiration (RAP 5-10 mmHg). Effusions There is no pericardial effusion. : CRISTHIAN HASTINGS > Lalita Rod
--- NOTE | 2019-06-09 12:45 | PDOC PROGRESS REPORT ---
Subjective Progress Note for:: 06/09/19 Subjective:: This is a 48 year old male with no significant past medical history aside from epilepsy well-controlled on Dilantin who is presenting with abdominal pain. He was admitted for acute calculus cholecystitis. Hospital service was consulted due to his bradycardia. No acute event overnight. Heart rate is running in the high 50s. He is asymptomatic and denies any chest pain, shortness of breath or dizziness. Blood pressures are running in the 120s to 130s systolic. This morning, he appears comfortable and says his abdominal pain is better. He is scheduled for a laparoscopic cholecystectomy with surgery today. Reason For Visit: CHOLELITHIASIS WITH ACUTE CHOLECYSTITIS, BRADYCARD Physical Exam Vital Signs: Temp Pulse Resp BP Pulse Ox 97.8 F 61 15 111/58 L 97 06/09/19 08:00 06/09/19 08:00 06/09/19 08:00 06/09/19 08:00 06/09/19 08:00 Intake & Output 06/08/19 06/09/19 06/10/19 06:59 06:59 06:59 Intake Total 2207 Balance 2207 Weight 209 lb 14.081 oz 210 lb 12.191 oz 210 lb 12.191 oz General appearance: PRESENT: no acute distress, well-developed, well-nourished Head exam: PRESENT: atraumatic, normocephalic Eye exam: PRESENT: conjunctiva pink, EOMI, PERRLA. ABSENT: scleral icterus Ear exam: PRESENT: normal external ear exam Mouth exam: PRESENT: moist, tongue midline Neck exam: ABSENT: carotid bruit, JVD, lymphadenopathy, thyromegaly Respiratory exam: PRESENT: clear to auscultation valeriy. ABSENT: rales, rhonchi, wheezes Cardiovascular exam: PRESENT: RRR. ABSENT: diastolic murmur, rubs, systolic murmur Pulses: PRESENT: normal dorsalis pedis pul Vascular exam: PRESENT: normal capillary refill GI/Abdominal exam: PRESENT: normal bowel sounds, soft. ABSENT: distended, guarding, mass, organolmegaly, rebound, tenderness Rectal exam: PRESENT: deferred Extremities exam: PRESENT: full ROM. ABSENT: calf tenderness, clubbing, pedal edema Neurological exam: PRESENT: alert, awake, oriented to person, oriented to place, oriented to time, oriented to situation, CN II-XII grossly intact. ABSENT: motor sensory deficit Skin exam: PRESENT: dry, intact, warm. ABSENT: cyanosis, rash Results Laboratory Results: 06/09/19 04:35 06/09/19 04:35 06/08/19 06/09/19 06/09/19 03:35 04:35 04:35 WBC 9.0 RBC 4.81 Hgb 14.6 Hct 42.0 MCV 87 MCH 30.2 MCHC 34.6 RDW 13.4 Plt Count 129 L Seg Neutrophils % 73.4 Lymphocytes % 17.5 Monocytes % 7.9 Eosinophils % 0.8 Basophils % 0.4 Absolute Neutrophils 6.6 Absolute Lymphocytes 1.6 Absolute Monocytes 0.7 Absolute Eosinophils 0.1 Absolute Basophils 0.0 Sodium 139.5 Potassium 4.9 Chloride 105 Carbon Dioxide 29 Anion Gap 6 BUN 16 Creatinine 0.99 Est GFR ( Amer) > 60 Est GFR (Non-Af Amer) > 60 Glucose 98 Calcium 8.9 TSH 1.07 06/08/19 06/08/19 06/08/19 03:35 03:35 06:50 Creatine Kinase 151 CK-MB (CK-2) 2.47 Troponin I < 0.012 < 0.012 Impressions: Chest X-Ray 06/08/19 03:47 IMPRESSION: No acute cardiopulmonary abnormality copyright 2011 [employer]- All Rights Reserved Abdomen/Pelvis CTA 06/08/19 07:22 IMPRESSION: 1. Unremarkable angiogram of the aorta. No evidence of aneurysm, dissection, or other acute pathology. 2. The gallbladder is distended and contains a large calcified stone in the fundus and a gallstone in the gallbladder neck (series 603, image 38). Findings are concerning for acute cholecystitis. Chest/Abdomen CTA 06/08/19 07:22 IMPRESSION: 1. Unremarkable angiogram of the aorta. No evidence of aneurysm, dissection, or other acute pathology. 2. The gallbladder is distended and contains a large calcified stone in the fundus and a gallstone in the gallbladder neck (series 603, image 38). Findings are concerning for acute cholecystitis. Assessment and Plan - Diagnosis (1) Cholelithiasis with acute cholecystitis Qualifiers: Biliary obstruction: without biliary obstruction Qualified Code(s): K80.00 - Calculus of gallbladder with acute cholecystitis without obstruction Is this a current diagnosis for this admission?: Yes Plan: He is scheduled for laparoscopic cholecystectomy today. (2) Bradycardia Is this a current diagnosis for this admission?: Yes Plan: Stable and asymptomatic. EKG showed sinus bradycardia. Heart rate today is in the high 50s. Troponins have been negative. TSH is normal. Echo was also pursued and that was normal. Patient does state that he is regular baseline heart rate is in the 50s to 60s. No further interventions or work-up needed at this time. (3) Epilepsy Is this a current diagnosis for this admission?: Yes Plan: Well controlled. Last seizure episode was 20 yrs ago. Continue dilantin.
[2019-06-09] MEDS: PHENYTOIN SODIUM EXTENDED 100 MG CAPSULE PO SCH ×2 (14:17→21:11)
[2019-06-09] MEDS ORDERED: HYDROMORPHONE HCL INJ/PF 2 MG/ML AMPULE ONE (14:47)
[2019-06-09] MEDS ORDERED: BUPIVACAINE HCL 0.25 % INJ/PF (2.5 MG/1 ML) 30 ML VIAL ONE (14:47)
[2019-06-09] MEDS ORDERED: PROPOFOL INJ 200 MG/20 ML VIAL IV ONE (14:47)
[2019-06-09] MEDS ORDERED: MIDAZOLAM 2 MG/2 ML INJ ONE (14:47)
[2019-06-09] MEDS ORDERED: ONDANSETRON HCL INJ/PF 4 MG/2 ML SDV IV PRN ×2 (15:34→17:01)
[2019-06-09] MEDS ORDERED: PROMETHAZINE HCL INJ 25 MG/1 ML VIAL IV PRN ×2 (15:34)
[2019-06-09] MEDS ORDERED: FENTANYL CITRATE INJ/PF 100 MCG/2 ML AMPUL IV PRN ×3 (15:34)
[2019-06-09] MEDS ORDERED: DIPHENHYDRAMINE HCL 50 MG/ML VIAL IV PRN (15:34)
[2019-06-09] MEDS ORDERED: MEPERIDINE HCL/PF INJ 25 MG/1 ML DISP.SYRIN IV PRN (15:34)
--- NOTE | 2019-06-09 16:58 | Operative Report ---
Operative Report DATE OF SURGERY: 06/09/19 PREOPERATIVE DIAGNOSIS: Acute cholecystitis and cholelithiasis POSTOPERATIVE DIAGNOSIS: Same OPERATION: Laparoscopic cholecystectomy SURGEON: YULISA COATES ANESTHESIA: GA TISSUE REMOVED OR ALTERED: 1 gallbladder with contents COMPLICATIONS: None ESTIMATED BLOOD LOSS: 75 cc INTRAOPERATIVE FINDINGS: See below PROCEDURE: After obtaining informed consent, the patient was taken to the operating room. General Anesthesia was induced; the arms were extended, and the abdomen was exposed, and prepped and draped in a sterile fashion. Instrumentation was set up for laparoscopic cholecystectomy. Surgical plan and surgical timeout were conducted. A vertical incision was made above the umbilicus, and a verres needle was inserted uneventfully into the peritoneal cavity. Pneumoperitoneum was established. The verres needle was removed and a 5 mm trocar was inserted and a 5 mm flexible laparoscope was inserted. Visualization of the peritoneal cavity confirmed safe uneventful entry. 3 additional 5 mm ports were inserted, one in the subxiphoid into the subcostal position Findings were significant for an acutely inflamed, distended gallbladder. The gallbladder was aspirated of approximately 75 cc of bile. The duodenal area was adhesed to the inferior surface of the gallbladder. Using a LigaSure dissection, the gastroduodenal area, and greater omentum were taken off of the inferior surface of the gallbladder. This proceeded methodically . the gallbladder was markedly distended and enlarged. Multiple photos were taken. A mild amount of blood was lost during this dissection. We got around the neck of the gallbladder and opened up the triangle of Calot widely. Again all using LigaSure dissection. The cystic artery was never identified to definitively. The gallbladder was now taken down from the fundus. The inflammation was very intense. Again some bleeding occurred. We eventually got the gallbladder completely suspended from the cystic duct. Photos were taken. We now secured the cystic duct proximally distally with 2-0 PDS Endoloops, divided the cystic duct, placed the gallbladder with a large gallstone in a Endobag and brought the specimens out of the patient to the supraumbilical port site. We returned the peritoneal cavity checked for bleeding and there was initially some oozing from the liver bed but this abated. We checked our port sites and they all appeared to be intact without bleeding. We felt the operation was complete. We returned to the peritoneal cavity check for bleeding, and evidence of bile leak, and there was none.. The subcutaneous tissue was then anesthetized with quarter percent Marcaine Sponge and needle counts are correct. All ports removed under direct visualization pneumoperitoneum evacuated, the supraumbilical port site was closed with multiple interrupted 0 Vicryl sutures, and 5 mm port wounds closed with 3-0 Vicryl suture, benzoin and Steri-Strips. The patient was extubated, and taken to the recovery room in stable condition.
[2019-06-09] MEDS ORDERED: KETOROLAC TROMETHAMINE 10 MG TABLET PO PRN (17:01)
[2019-06-09] MEDS ORDERED: ACETAMINOPHEN 1,000 MG/100 ML RTUPB IV ONE (17:18)
[2019-06-09] MEDS ORDERED: ACETAMINOPHEN INJ/PF 1000 MG/100 ML SDV IV ONE (17:30)
[2019-06-10] MEDS: KETOROLAC TROMETHAMINE INJ/PF 30 MG/1 ML SDV IV PRN (03:37)
[2019-06-10] MEDS: PIPERACILLIN SODIUM/TAZOBACTAM 3.375 GM in NORMAL SALINE 100 ML IV SCH (05:18)
[2019-06-10] MEDS: INSULIN LISPRO 100 UNIT/ML 3 ML VIAL SUBCUT SCH ×2 (09:10→10:53)
[2019-06-10] MEDS: PHENYTOIN SODIUM EXTENDED 100 MG CAPSULE PO SCH (09:14)
[2019-06-10] MEDS ORDERED: DOCUSATE SODIUM 100 MG CAPSULE PO SCH (10:00)
[2019-06-10 10:30] VITALS: BP 139/72
--- NOTE | 2019-06-10 11:20 | DISCHARGE SUMMARY E ---
Discharge Summary NAME: JERARDO ABRAMS : 1970 AGE: 48Y ADMITTED: 06/08/2019 DISCHARGED: 06/09/2019 PROCEDURE DONE: 06/09/19 Laparoscopic cholecystectomy. SURGEON: Casper Coley MD HOSPITAL COURSE: This is a 48-year-old male who complains of severe pains in the right upper quadrant and went to ED. He did have a fatty meal from [employer] the night before. A CAT scan in the ED showed gallstones with acute cholecystitis. He was noted to have bradycardia in the ED about 45 per minute and medical consultation obtained and subsequently cleared for OR. He then underwent laparoscopic cholecystectomy on 03/09/[address] Coley. Postoperatively he did very well, tolerating regular diet on the day of discharge. All incisions appeared to be clean and dry. He was given a prescription for Toradol to take as needed for pain. Arrangements will be made for him to be followed up in the clinic in 2 weeks. He was advised not to lift any heavy stuff, more than 10 to 15 pounds, until seen in the clinic. DICTATING PHYSICIAN: GEE ESTES M.D. [id number] PHY#: [id number] ID: [id number] JOB#: [id number] ACCT: [id number] cc:GEE ESTES M.D. >
--- NOTE | 2019-06-10 16:53 | PDOC PROGRESS REPORT ---
Subjective Progress Note for:: 06/10/19 Subjective:: This is a 48 year old male with no significant past medical history aside from epilepsy well-controlled on Dilantin who is presenting with abdominal pain. He was admitted for acute calculus cholecystitis. Hospital service was consulted due to his bradycardia. He had laparoscopic cholecystectomy yesterday which was uneventful. No acute event overnight. Patient denies acute complaints. Heart rate running in the 60s. No shortness of breath or chest pain. Likely discharge today Reason For Visit: CHOLELITHIASIS,CHOLECYSTITIS, Physical Exam Vital Signs: Temp Pulse Resp BP Pulse Ox 98.4 F 62 17 139/72 H 96 06/10/19 10:25 06/10/19 10:25 06/10/19 10:25 06/10/19 10:25 06/10/19 10:25 Intake & Output 06/09/19 06/10/19 06/11/19 06:59 06:59 06:59 Intake Total 2207 4525 Output Total 1085 Balance 2207 3440 Weight 210 lb 12.191 oz 211 lb 3.245 oz General appearance: PRESENT: no acute distress, well-developed, well-nourished Head exam: PRESENT: atraumatic, normocephalic Eye exam: PRESENT: conjunctiva pink, EOMI, PERRLA. ABSENT: scleral icterus Ear exam: PRESENT: normal external ear exam Mouth exam: PRESENT: moist, tongue midline Neck exam: ABSENT: carotid bruit, JVD, lymphadenopathy, thyromegaly Respiratory exam: PRESENT: clear to auscultation valeriy. ABSENT: rales, rhonchi, wheezes Cardiovascular exam: PRESENT: RRR. ABSENT: diastolic murmur, rubs, systolic murmur Pulses: PRESENT: normal dorsalis pedis pul GI/Abdominal exam: PRESENT: normal bowel sounds, soft. ABSENT: distended, guarding, mass, organolmegaly, rebound, tenderness Extremities exam: PRESENT: full ROM. ABSENT: calf tenderness, clubbing, pedal edema Neurological exam: PRESENT: alert, awake, oriented to person, oriented to place, oriented to time, oriented to situation, CN II-XII grossly intact. ABSENT: motor sensory deficit Results Laboratory Results: 06/09/19 04:35 06/09/19 04:35 06/08/19 15:17 Blood Blood Culture - Final Micrococcus Species 06/08/19 06/08/19 06/08/19 03:35 03:35 06:50 Creatine Kinase 151 CK-MB (CK-2) 2.47 Troponin I < 0.012 < 0.012 Impressions: Chest X-Ray 06/08/19 03:47 IMPRESSION: No acute cardiopulmonary abnormality copyright 2011 [employer]- All Rights Reserved Abdomen/Pelvis CTA 06/08/19 07:22 IMPRESSION: 1. Unremarkable angiogram of the aorta. No evidence of aneurysm, dissection, or other acute pathology. 2. The gallbladder is distended and contains a large calcified stone in the fundus and a gallstone in the gallbladder neck (series 603, image 38). Findings are concerning for acute cholecystitis. Chest/Abdomen CTA 06/08/19 07:22 IMPRESSION: 1. Unremarkable angiogram of the aorta. No evidence of aneurysm, dissection, or other acute pathology. 2. The gallbladder is distended and contains a large calcified stone in the fundus and a gallstone in the gallbladder neck (series 603, image 38). Findings are concerning for acute cholecystitis. Assessment and Plan - Diagnosis (1) Cholelithiasis with acute cholecystitis Qualifiers: Biliary obstruction: without biliary obstruction Qualified Code(s): K80.00 - Calculus of gallbladder with acute cholecystitis without obstruction Is this a current diagnosis for this admission?: Yes Plan: S/P laparoscopic cholecystectomy today. (2) Bradycardia Is this a current diagnosis for this admission?: Yes Plan: Stable and asymptomatic. EKG showed sinus bradycardia. Heart rate today is in the high 50s. Troponins have been negative. TSH is normal. Echo was also pursued and that was normal. Patient does state that he is regular baseline heart rate is in the 50s to 60s. No further interventions or work-up needed at this time. (3) Epilepsy Is this a current diagnosis for this admission?: Yes Plan: Well controlled. Last seizure episode was 20 yrs ago. Continue dilantin. - Time Time Spent with patient: 15-24 minutes
== END 2019-06-10 11:30 | disposition home or self-care (01) ==
LOC: ER 02:52 → INTOOBSV 10:37 → EH 10:37 → 4N 17:53
PROVIDERS: ADMIT Surgery; ATTEND Surgery
PROC: 0FT44ZZ Resection of Gallbladder, Percutaneous Endoscopic Approach (ICD-10-PCS; principal; 2019-06-09 11:30)
DX: K80.12 Calculus of gallbladder with acute and chronic cholecystitis without obstruction (principal); G40.909 Epilepsy, unspecified, not intractable, without status epilepticus; R00.1 Bradycardia, unspecified; I45.10 Unspecified right bundle-branch block; D72.829 Elevated white blood cell count, unspecified; Z79.899 Other long term (current) drug therapy
CPT/HCPCS: 93005; 99285; 96374; 96375; 36415 ×2; 87040; 82553; 82962; 82550; 83690; 84443; 85025 ×2; 87077; 80048; 80053; 84484; 88304 ×2; 93306; 71045; 71275; 74174; 93010; 00790; 47562; G0378 ×4; J2250; J3490 ×5; J1100; J1885 ×4; J2765; J2270; J2710; J1170; S0164; J0330; J2405; J7050 ×3; J7030; J2704; J2543 ×3; J0131; 790